=== PATIENT | female | born 1995 | race Caucasian/White ===

== ENCOUNTER 2016-11-14 20:13 | Emergency (ER) ==
[2016-11-14 20:52] LABS: URINE SOURCE CLEAN CATCH
[2016-11-14 20:57] LABS: BILIRUBIN URINE NEGATIVE (NEGATIVE); BLOOD URINE NEGATIVE (NEGATIVE); CLARITY CLEAR (CLEAR); COLOR YELLOW; GLUCOSE URINE NEGATIVE (NEGATIVE); LEUKOCYTES URINE TRACE (NEGATIVE); NITRITE URINE NEGATIVE (NEGATIVE); PH URINE 6.5; PROTEIN URINE NEGATIVE (NEGATIVE); SP GRAVITY URINE 1.015; UROBILINOGEN URINE NORMAL
[2016-11-14 21:16] LABS: URINE CAST NONE SEEN /LPF; URINE CRYSTAL NONE SEEN /HPF; URINE CULTURE PL NEEDED? YES; URINE EPITHELIAL CELLS <10 /HPF (<10); URINE WBC <10 /HPF (<10)
--- NOTE | 2016-11-14 22:16 | PROVIDER DOCUMENTATION ---
HPI-Abdominal Pain/GI Problem - History of Present Illness-ABD Nature of Presenting Problems: 20 YOF PRESENTS TO ED WITH C/O PT STATES SHE KEEPS TAKING TEST AT HOME WITH NEG RESULTS. PT STATES HER LAST NORMAL MENSTRUAL CYCLE WAS 09/08/16. PT STATES SHE HAS HAD SUPRAPUBIC PAIN X 1 WEEK. PT DENIES ANY URINARY PROBLEMS. Abdominal Pain Onset Location: reports: suprapubic Pain Radiation: reports: no radiation Quality of Pain: reports: aching Severity in ED: reports: moderate Onset/Duration: reports: 1 week ago Timing: reports: still present Activities at Onset: reports: light activity Modifying Factors: improves with: nothing Last BM: unsure Dark Stools Present?: reports: none noticed Rectal Bleeding: reports: none Rectal Pain: reports: none Emesis Description: reports: none Bruising or Bleeding Gums?: No Similar Symptoms Previously?: No Recently seen or treated by another doctor?: No <Timo Gonzalez - Last Filed: 11/14/16 22:19> - General Source: patient <PeymanElisha - Last Filed: 11/16/16 01:51> - General Chief Complaint: Abdominal Pain Stated Complaint: ABD PAIN Time Seen by Provider: 11/14/16 21:43 Allergies/Adverse Reactions: Patient Allergies Allergy/AdvReac Type Severity Reaction Status Date / Time No Known Allergies Allergy Verified 06/26/16 13:17 Home Medications: Home Medication List Medication Instructions Recorded Confirmed Last Taken Type Ondansetron [Zofran] 4 mg PO Q6H PRN PRN #30 tablet 11/14/16 Unknown Rx Pnv No.118/Iron Fumarate/FA 1 each PO DAILY #90 tab.chew 11/14/16 Unknown Rx [ 19 Chewable Tablet] Review of Systems - Adult - REVIEW OF SYSTEMS - ADULT Constitutional: denies: chills, fever Eyes: reports: no symptoms reported Ears, Nose, Mouth & Throat: reports: no symptoms reported Cardiovascular: denies: chest pain, palpitations, syncope Respiratory: denies: cough, shortness of breath, wheezing Gastrointestinal: reports: abdominal pain (SUPRAPUBIC) Genitourinary: reports: no symptoms reported Musculoskeletal: denies: back pain, neck pain Integumentary: reports: no symptoms reported Neurological: denies: dizziness/vertigo, headache/migraines, syncope Psychiatric: reports: no symptoms reported Endocrine: reports: no symptoms reported Hematologic/Lymphatic: reports: no symptoms reported Allergic/Immunologic: reports: no symptoms reported All Other Systems: Reviewed and Negative <CarlosJonhTimo - Last Filed: 11/14/16 22:19> Past History - Adult - PAST MEDICAL HISTORY-ADULT Review of Records: reports: Nursing Assessment Review, Medications Reviewed - IMMUNIZATION STATUS Childhood Immunizations: See Nurse Assessment Flu Vaccine: See Nurse Assessment - SOCIAL HISTORY Smoking: quit less than 1 year, cigarettes Substance Use: denies Alcohol Use Frequency: never Living Situation: family <CarlosTimo - Last Filed: 11/14/16 22:19> - PAST MEDICAL HISTORY-ADULT Major Childhood Illnesses: reports: denies history Cardiovascular: reports: denies history Respiratory: reports: denies history Gastrointestinal: reports: denies history Obstetrical/Gynecological: reports: denies history Genitourinary: reports: denies history Musculoskeletal: reports: denies history Neurological: reports: denies history Endocrine/Immune: reports: denies history Other Conditions: reports: denies history - PRIOR SURGERIES/PROCEDURES Surgical/Procedure History: reports: none - PRIOR HOSPITALIZATIONS Prior Hospitalizations: reports: none - IMMUNIZATION STATUS Childhood Immunizations: UTD - FAMILY HISTORY Family History: reviewed, not pertinent <Elisha Morley - Last Filed: 11/16/16 01:51> Physical Exam-General - CONSTITUTIONAL General Appearance: alert, moderate distress - EYES Eyes: PERRL/EOMI, pink conjunctivae - HEAD, EARS, NOSE, MOUTH & THROAT HENMT: normocephalic/atraumatic, moist mucous membranes - NECK Neck: non-tender, full range of motion, supple - RESPIRATORY Respiratory: chest non-tender, lungs clear, normal breath sounds - CARDIOVASCULAR Cardiovascular: normal peripheral pulses, tachycardia - GASTROINTESTINAL (ABDOMEN) Abdominal Exam: normal bowel sounds, non tender, soft - LYMPHATIC Lymphatic: no adenopathy - MUSCULOSKELETAL Back Exam: normal inspection, no CVA tenderness, no vertebral tenderness Extremity: normal range of motion, non-tender - SKIN Integumentary: normal color, normal turgor, warm/dry - NEUROLOGIC Neurologic: grossly normal - PSYCHIATRIC Psych/Mental Status: oriented x 3 <Timo Gonzalez - Last Filed: 11/14/16 22:19> Progress - PLAN OF CARE/RESULTS Progress/Plan/Lab Results: Laboratory Tests 11/14/16 11/14/16 20:46 20:49 Urine Source CLEAN CATCH Urine Color YELLOW Urine Clarity CLEAR Urine pH 6.5 Ur Specific [place] 1.015 Urine Protein NEGATIVE Urine Ketones NEGATIVE Urine Blood NEGATIVE Urine Nitrite NEGATIVE Urine Bilirubin NEGATIVE Urine Urobilinogen NORMAL Urine Microscopic RBC Not Reportable Urine WBC TRACE A Urine Microscopic WBC <10 Ur Epithelial Cells <10 Urine Crystals NONE SEEN Urine Bacteria 1+ Urine Casts NONE SEEN Urine Yeast NONE SEEN Urine Glucose NEGATIVE Urine Test POSITIVE Orders Category Date Time Status TEST-URINE [PREG] Stat Lab 11/14/16 20:[address] W/POSS RFLX CULT [URINALYSIS] Stat Lab 11/14/16 20:46 Completed URINE CULTURE [RM] Routine Lab 11/14/16 20:09 Results Vital Signs Temp Pulse Resp BP Pulse Ox 11/14/16 22:27 98 F 80 16 122/70 97 11/14/16 20:37 98.5 F 96 H 18 140/74 99 No Known Allergies Allergy (Verified 06/26/16 13:17) Ondansetron [Zofran] 4 mg PO Q6H PRN PRN #30 tablet 11/14/16 Pnv No.118/Iron Fumarate/FA [ 19 Chewable Tablet] 1 each PO DAILY #90 tab.chew 11/14/16 Laboratory 11/14/16 11/14/16 20:49 20:46 Urine Source CLEAN CATCH Urine Color YELLOW Urine Clarity CLEAR Urine pH 6.5 Ur Specific [place] 1.015 Urine Protein NEGATIVE Urine Ketones NEGATIVE Urine Blood NEGATIVE Urine Nitrite NEGATIVE Urine Bilirubin NEGATIVE Urine Urobilinogen NORMAL Urine Microscopic RBC Not Reportable Urine WBC TRACE A Urine Microscopic WBC <10 Ur Epithelial Cells <10 Urine Crystals NONE SEEN Urine Bacteria 1+ Urine Casts NONE SEEN Urine Yeast NONE SEEN Urine Glucose NEGATIVE Urine Test POSITIVE Discussed results and f/u with pt. <Elisha Morley - Last Filed: 11/16/16 01:51> Departure <Timo Gonzalez - Last Filed: 11/14/16 22:19> - Departure Time of Disposition Order: 22:14 Certified Medical Emergency: Emergent <Elisha Morley - Last Filed: 11/16/16 01:51> - Departure DIAGNOSIS: Vomiting during Qualifiers: Weeks of gestation: less than 8 weeks Qualified Code(s): Z3A.01 - Less than 8 weeks gestation of Disposition: HOME 01 Condition: Stable Additional Instructions: Follow up with OB for further management. Take medications as directed. Return if severe abdominal pain or vaginal bleeding. ED Follow Up Instructions: You have been treated by a care provider in the Emergency Department. These instructions are being provided to you so you can have an understanding of how to care for yourself upon discharge. Upon discharge from the Emergency Department, you are responsible for making arrangements for follow-up care by a physician of your choice. Take all prescribed medications as directed. Return to the Emergency Department immediately for any new or worsening symptoms. You may call the Physician Referral phone number at [phone] to obtain a list of Physicians who are taking new patients. Prescriptions: Pnv No.118/Iron Fumarate/FA [ 19 Chewable Tablet] 1 each PO DAILY #90 tab.chew Ondansetron [Zofran] 4 mg PO Q6H PRN PRN #30 tablet PRN Reason: Nausea Referrals: None,PCP [Primary Care Provider] - Antonio Levy MD [STAFF PHYSICIAN] - Forms: Return to School/Parent Work Instructions: Ondansetron tablets, First Trimester of , [id number] Attestation - Scribe Verification/Attestation Scribe:: Timo Gonzalez Acting as Scribe for:: Elisha Morley Scribe documention review:: This chart was documented by a scribe and accurately reflects the service the provider performed and the decisions made by the provider. <Timo Gonzalez - Last Filed: 11/14/16 22:19> - Physician/ MILAN Attestation Patient care was provided by Advanced Practice Provider:: Yes Advanced Practice Provider:: Elisha Morley Advanced Practice Provider documentation review:: The Mid-level provider documentation, treatment plan and medical decision making was reviewed by the physician who agrees with all treatment and medical decision making by the MLP. <Elisha Morley - Last Filed: 11/16/16 01:51> Physician Attestation
[2016-11-14 22:28] VITALS: BP 122/70
== END 2016-11-14 22:28 | disposition home or self-care (01) ==
LOC: P.ED 20:13
DX: O21.0 Mild hyperemesis gravidarum (principal); Z3A.01 Less than 8 weeks gestation of pregnancy; O26.891 Other specified pregnancy related conditions, first trimester; R10.30 Lower abdominal pain, unspecified; R00.0 Tachycardia, unspecified; Z87.891 Personal history of nicotine dependence
CPT/HCPCS: 81001; 81025; 87088; 99283